=== PATIENT | female | born 1935 | race Caucasian/White ===

== ENCOUNTER → 2017-04-29 | Outpatient (CLI) | payer MEDICARE ==
[2017-04-29 08:58] LABS: AUTOMATED NEUTROPHIL # 3.9 TH/MM3 (1.8-7.7); BASOPHIL % 0.7 % (0.0-2.0); EOSINOPHIL # 0.1 TH/MM3 (0-0.4); EOSINOPHIL % 1.2 % (0.0-4.0); HEMATOCRIT 36.2 % (35.0-46.0); HEMO FLAGS DIFF FINAL; LYMPHOCYTE # 1.8 TH/MM3 (1.0-4.8); MEAN CELL VOLUME 94.6 FL (80.0-100.0); MEAN CORPUSCULAR HEMOGLOBIN 30.9 PG (27.0-34.0); MEAN CORPUSCULAR HGB CONC 32.7 % (32.0-36.0); MONO % 8.7 % (0.0-8.0); NEUT % 61.4 % (16.0-70.0); PLATELET COUNT 194 TH/MM3 (150-450); RED BLOOD COUNT 3.82 MIL/MM3 (4.00-5.30); RED CELL DISTRIBUTION WIDTH 15.6 % (11.6-17.2); WHITE BLOOD COUNT 6.3 TH/MM3 (4.0-11.0)
[2017-04-29 09:19] LABS: ANION GAP 6 MEQ/L (5-15); AST (GOT) 28 U/L (15-37); BICARBONATE 25.2 MEQ/L (21.0-32.0); BLOOD UREA NITROGEN 15 MG/DL (7-18); CHLORIDE 106 MEQ/L (98-107); GLOMERULAR FILTRATION RATE 88 ML/MIN (>89); GLUCOSE,FASTING 86 MG/DL (74-99); POTASSIUM 4.2 MEQ/L (3.5-5.1); SODIUM (NA) 137 MEQ/L (136-145)
[2017-04-29 09:31] LABS: ALKALINE PHOSPHATASE 81 U/L (45-117); ALT (GPT) 25 U/L (10-53); TOTAL BILIRUBIN ADULT 0.7 MG/DL (0.2-1.0)
== END ==
LOC: OLAB 07:41
DX: E03.9 Hypothyroidism, unspecified (principal)
CPT/HCPCS: 36415; 80053; 84443; 85025

== ENCOUNTER → 2017-05-12 | Outpatient (CLI) | payer MEDICARE | LOC: OLAB 09:07 | PROVIDERS: ATTEND Internal Medicine Pulmonary Disease | DX: J47.9 Bronchiectasis, uncomplicated (principal); B96.5 Pseudomonas (aeruginosa) (mallei) (pseudomallei) as the cause of diseases classified elsewhere | CPT/HCPCS: 87070; 87077; 87186; 87205 ==

== ENCOUNTER → 2017-05-13 | Outpatient (CLI) | payer MEDICARE ==
[2017-05-13 13:16] LABS: BACTERIA, URINE RARE /hpf; BLOOD, URINE TRACE (NEG); GLUCOSE,URINE NEG (NEG); KETONE, URINE NEG (NEG); NITRITE,URINE NEG (NEG); PH, URINE 5.5 (5.0-8.5); SQUAMOUS EPITHELIAL CELL URINE 1 /hpf (0-5); URINE COLOR YELLOW (YELLW/STRAW)
[2017-05-13 13:18] LABS: COMMENT (UR) CULT NOT INDICATED; CULTURE IF INDICATED CULT NOT INDICATED
== END ==
LOC: OLAB 10:01
DX: R35.0 Frequency of micturition (principal)
CPT/HCPCS: 81001

== ENCOUNTER → 2017-06-30 | Outpatient (CLI) | payer MEDICARE | LOC: OLAB 07:44 | PROVIDERS: ATTEND Internal Medicine Pulmonary Disease | DX: J47.9 Bronchiectasis, uncomplicated (principal); B96.5 Pseudomonas (aeruginosa) (mallei) (pseudomallei) as the cause of diseases classified elsewhere | CPT/HCPCS: 87070; 87077; 87186; 87205 ==

== ENCOUNTER → 2017-09-03 | Outpatient (CLI) | payer MEDICARE | LOC: OLAB 09:56 | PROVIDERS: ATTEND Internal Medicine Gastroenterology | DX: K59.00 Constipation, unspecified (principal); R19.7 Diarrhea, unspecified | CPT/HCPCS: 82272 ==

== ENCOUNTER 2018-01-28 08:47 | Inpatient (IN) | payer MEDICARE ==
[~2018-01-28] VITALS: Ht 152.4 cm; Wt 41.2 kg
[2018-01-28] VITALS (12 sets, daily range): BP systolic 114–164; BP diastolic 71–88; PULSE 62–88; RESP 16–24; TEMP 97.4–98.3; O2SAT 96–98
[2018-01-28] MEDS ORDERED: IOHEXOL 350 MG/ML 10 ML VIAL (for RAD DIAG) IVCONTRAST ONE (08:48)
[2018-01-28] MEDS ORDERED: LEVO88TA2 PO (09:31)
[2018-01-28] MEDS ORDERED: LANS30CA PO (09:31)
[2018-01-28] MEDS ORDERED: LEVA0.637 INH (09:31)
[2018-01-28] MEDS ORDERED: MULTTAB67 PO (09:31)
[2018-01-28] MEDS ORDERED: COLE1TAB2 PO (09:31)
[2018-01-28] MEDS ORDERED: CYAN1000P IM (09:31)
[2018-01-28] MEDS ORDERED: BUSP10TA PO (09:31)
[2018-01-28] MEDS ORDERED: HUMIBIDDM PO (09:31)
[2018-01-28] MEDS ORDERED: WARF4TAB51 PO (09:31)
[2018-01-28] MEDS ORDERED: SACC1CAP3 PO (09:31)
[2018-01-28] MEDS ORDERED: PROG200C PO (09:31)
[2018-01-28] MEDS ORDERED: ASPI-516 CHEW (09:31)
[2018-01-28] MEDS ORDERED: CLON1TAB PO (09:31)
[2018-01-28] MEDS ORDERED: [UNRECOGNIZED DRUG - CODE] T-DERMAL (09:31)
[2018-01-28] MEDS ORDERED: SODI7NEB3 NEB (09:31)
[2018-01-28] MEDS ORDERED: TRAM50TA PO (09:31)
[2018-01-28] MEDS ORDERED: SODIUM CHLORIDE 0.9% FLUSH 10 ML FLUSH IVF PRN (10:15)
--- NOTE | 2018-01-28 10:28 | RADRPT ---
EXAM DATE: 01/28/2018 10:23 AM EDT AGE/SEX: 82 years / Female INDICATIONS: Short of breath CLINICAL DATA: This is the patient's initial encounter. Patient reports that signs and symptoms have been present for 1 day and indicates a pain score of 0/10. MEDICAL/SURGICAL HISTORY: Chronic obstructive pulmonary disease. Cholecystectomy. Pacemaker. H eart valve replacement COMPARISON: No prior exams available for comparison. FINDINGS: Single view chest demonstrates cardiomegaly. The patient is post TAVR. There are bilateral effusions and interstitial edema most consistent with congestive failure. There is a transvenous pacer in good position. The visualized bony structures are grossly intact. CONCLUSION: Probable CHF. Postoperative changes as above. Electronically signed by: French Ronquillo MD 01/28/2018 10:27 AM EDT
[2018-01-28 10:32] LABS: AUTOMATED NEUTROPHIL # 3.5 TH/MM3 (1.8-7.7); BASOPHIL % 0.7 % (0.0-2.0); EOSINOPHIL % 0.2 % (0.0-4.0); HEMOGLOBIN 12.4 GM/DL (11.6-15.3); LYMPH % 17.9 % (9.0-44.0); LYMPHOCYTE # 0.9 TH/MM3 (1.0-4.8); MEAN CELL VOLUME 95.6 FL (80.0-100.0); MEAN CORPUSCULAR HEMOGLOBIN 31.3 PG (27.0-34.0); MEAN CORPUSCULAR HGB CONC 32.7 % (32.0-36.0); MEAN PLATELET VOLUME 8.3 FL (7.0-11.0); MONO % 11.5 % (0.0-8.0); MONOCYTE # 0.6 TH/MM3 (0-0.9); NEUT % 69.7 % (16.0-70.0); PLATELET COUNT 158 TH/MM3 (150-450); RED BLOOD COUNT 3.98 MIL/MM3 (4.00-5.30); RED CELL DISTRIBUTION WIDTH 16.2 % (11.6-17.2); WHITE BLOOD COUNT 5.1 TH/MM3 (4.0-11.0)
[2018-01-28 10:41] LABS: INTERNATIONAL NORMALIZED RATIO 2.6 RATIO; PROTHROMBIN TIME - PATIENT 26.1 SEC (9.8-11.6)
[2018-01-28 10:59] LABS: ALBUMIN 3.5 GM/DL (3.4-5.0); AST (GOT) 32 U/L (15-37); BICARBONATE 22.1 MEQ/L (21.0-32.0); BLOOD UREA NITROGEN 14 MG/DL (7-18); CALCIUM 8.6 MG/DL (8.5-10.1); CHLORIDE 110 MEQ/L (98-107); CREATININE 0.81 MG/DL (0.50-1.00); GLOMERULAR FILTRATION RATE 68 ML/MIN (>89); GLUCOSE,RANDOM 76 MG/DL (74-106); SODIUM (NA) 140 MEQ/L (136-145)
[2018-01-28 11:00] LABS: ALT (GPT) 29 U/L (10-53)
[2018-01-28 11:03] LABS: ALKALINE PHOSPHATASE 69 U/L (45-117); TOTAL BILIRUBIN ADULT 0.7 MG/DL (0.2-1.0); TOTAL PROTEIN 7.5 GM/DL (6.4-8.2)
[2018-01-28 11:06] LABS: TROPONIN I 0.92 NG/ML (0.02-0.05)
[2018-01-28] MEDS ORDERED: ASPIRIN 81 MG CHEW TAB CHEW ONE (11:30)
[2018-01-28] MEDS ORDERED: FUROSEMIDE 20 MG/2 ML VIAL IV PUSH ONE (11:30)
--- NOTE | 2018-01-28 11:57 | RADRPT ---
EXAM DATE: 01/28/2018 11:47 AM EDT AGE/SEX: 82 years / Female INDICATIONS: Short of breath. CLINICAL DATA: This is the patient's initial encounter. Patient reports that signs and symptoms have been present for 1 day and indicates a pain score of 0/10. MEDICAL/SURGICAL HISTORY: Cardiovascular disease. Pacemaker. Cholecystectomy. Valve replacement. RADIATION DOSE: 5.54 CTDI (mGy) COMPARISON: [facility], CT CHEST W/O CONTRAST, 01/05/2018. . TECHNIQUE: Volumetric scanning was performed using a multi-row detector CT scanner during bolus infu alvino of 73 ml Omnipaque 350 (iohexol) nonionic water-soluble contrast as a single exam dose. The joshua a was post processed with a variety of visualization algorithms including full volume maximum intensi ty projection and sliding thin slab reformation. Using automated exposure control and adjustment of t he mA and/or kV according to patient size, radiation dose was kept as low as reasonably achievable to obtain optimal diagnostic quality images. DICOM format image data is available electronically for r eview and comparison. FINDINGS: Pulmonary Arteries: There is some heterogeneity of the contrast within the pulmonary system however there does appear to be linear filling defects in the main pulmonary especially on the right. There i s more distal pulmonary emboli seen in the pulmonary supplying the right lower lobe. Lung: There are focal areas of increased density in the superior aspect of the lower lobes bilateral ly. There is a small focal area of density seen in the lateral right upper lobe which appear smaller on the current exam. There is suspected consolidation or atelectasis at the right middle lobe and to lesser degree left lingula. There is some subpleural atelectasis at the lower lobes bilaterally. Effusion: There are mild bilateral pleural effusions being worse on the left. Mediastinum: The patient has a has a TAVR at the aortic valve. There is a pacing device present. Sig nificant adenopathy is not seen. There is prominent reflux of contrast into the hepatic veins and IVC which can be seen with increased pressure in the right heart. Other: The axilla is unremarkable. CONCLUSION: 1. Pulmonary emboli. 2. Patchy areas of density in the superior segments of the lower lobes bilaterally, in the lateral r ight upper lobe, right middle lobe, left lingula, and bases. These can be followed. 3. Bilateral mild pleural effusions being worse on the left. Electronically signed by: Lance Orta MD 01/28/2018 11:55 AM EDT
[2018-01-28] MEDS ORDERED: HEPARIN-D5W 25,000 U/250 ML 250 ML IV PRN (12:45)
--- NOTE | 2018-01-28 13:23 | PD ---
HPI Chief Complaint: Respiratory Symptoms Time Seen by Provider: 09:02 Travel History International Travel<30 days: No Contact w/Intl Traveler<30days: No Traveled to known affect area: No History of Present Illness HPI Patient is an 82 year old female who comes in complaining of SOB. She says she has had increasing shortness of breath for the past 5 days. She says the SOB comes on when she exerts herself. She says she cannot walk to the mailbox without getting short of breath. She denies any chest pain. She went to see Dr. Iqbal last week and had an echo performed. She denies any leg swelling or pain. She says this feels the same as when she had her aortic valve replaced. Severity is mild to moderate. PFSH Past Medical History Hx Anticoagulant Therapy: Yes Anemia: Yes Atrial Fibrillation: Yes Anxiety: Yes Cardiovascular Problems: Yes (mitral regurgitation, non rheumatic tricuspid valva insufficiency ) Chest Pain: Yes Coronary Artery Disease: Yes Respiratory: Yes (bronchiectasis) Thyroid Disease: Yes (hypo ) ?: Not Menopausal: Yes Past Surgical History Abdominal Surgery: Yes (abd hernia repair ) Cardiac Surgery: Yes (aritficial valve, pacemaker ) Cholecystectomy: Yes Tonsillectomy: Yes Social History Alcohol Use: No Tobacco Use: No Substance Use: No Allergies-Medications (Allergen,Severity, Reaction): Coded Allergies: Penicillins (Verified Allergy, Severe, 01/28/18) Sulfa (Sulfonamide Antibiotics) (Verified Allergy, Severe, 01/28/18) azithromycin (Verified Allergy, Severe, 01/28/18) levofloxacin (Verified Allergy, Severe, 01/28/18) Uncoded Allergies: minicin (Allergy, Severe, 01/28/18) Reported Meds & Prescriptions Reported Meds & Active Scripts Active Reported Probiotic (Saccharomyces Boulardii) 250 Mg Cap 250 Mg PO DAILY Warfarin 2 Mg Tab 4 Mg PO DAILY Tramadol (Tramadol HCl) 50 Mg Tab 50 Mg PO DAILY PRN Sodium Chloride Neb (Sodium Chloride) 7 % Neb 1 Ml NEB BID PRN Dilute in bronchodilator solution in nebulizer before administration. Estradiol Patch 168 HR (Estradiol) 0.06 Mg/24 Hr Patch 1 Patch T-DERMAL 2XWEEK Remove old patch and discard when new patch being placed. Clonazepam 1 Mg Tab 1 Mg PO TID Cyanocobalamin Inj (Cyanocobalamin) 1,000 Mcg/Ml Inj 1,000 Mcg IM Q30D Colestipol (Colestipol HCl) 1 Gram Tab 0.5 Gm PO DAILY Buspirone (Buspirone HCl) 10 Mg Tab 10 Mg PO BID Aspirin 81 Mg Chew 81 Mg CHEW DAILY Progesterone Micronized 200 Mg Cap 200 Mg PO HS Multiple Vitamin 1 Tab 1 Tab PO DAILY Mucinex DM (Dextromethorphan-Guaifenesin) 30-600 Mg Tab 1 Tab PO DAILY Levothyroxine (Levothyroxine Sodium) 88 Mcg Tab 88 Mcg PO DAILY Levalbuterol Neb (Levalbuterol HCl) 0.63 Mg/3 Ml Neb 0.63 Mg INH Q8HR Lansoprazole 30 Mg Capdr 30 Mg PO DAILY Review of Systems Except as stated in HPI: all other systems reviewed are Neg General / Constitutional: No: Fever, Chills HENT: No: Headaches, Lightheadedness Cardiovascular: No: Chest Pain or Discomfort Respiratory: Positive: Shortness of Breath Gastrointestinal: No: Nausea, Vomiting Musculoskeletal: No: Myalgias, Edema Skin: No Rash, No Change in Pigmentation Neurologic: No: Weakness, Dizziness, Syncope Physical Exam Narrative GENERAL: Awake and alert, in no acute distress. SKIN: Focused skin assessment warm/dry. HEAD: Atraumatic. Normocephalic. EYES: Pupils equal and round. No scleral icterus. No injection or drainage. ENT: No nasal bleeding or discharge. Mucous membranes pink and moist. NECK: Trachea midline. No JVD. CARDIOVASCULAR: Regular rate and rhythm. No murmur appreciated. RESPIRATORY: No accessory muscle use. Crackles at the lung bases. Breath sounds equal bilaterally. GASTROINTESTINAL: Abdomen soft, non-tender, nondistended. MUSCULOSKELETAL: No obvious deformities. No clubbing. No cyanosis. No edema. NEUROLOGICAL: Awake and alert. No obvious cranial nerve deficits. Motor grossly within normal limits. Normal speech. PSYCHIATRIC: Appropriate mood and affect; insight and judgment normal. Data Data Last Documented VS Vital Signs Date Time Temp Pulse Resp B/P (MAP) Pulse Ox O2 Delivery O2 Flow Rate FiO2 01/28/18 10:25 98 01/28/18 09:10 68 21 Room Air 01/28/18 08:52 97.4 125/71 (89) Orders Orders Complete Blood Count With Diff (01/28/18 10:09) Comprehensive Metabolic Panel (01/28/18 10:09) B-Type Natriuretic Peptide (01/28/18 10:09) Act Partial Throm Time (Ptt) (01/28/18 10:09) Prothrombin Time / Inr (Pt) (01/28/18 10:09) Ckmb (Isoenzyme) Profile (01/28/18 10:09) Troponin I (01/28/18 10:09) Iv Access Insert/Monitor (01/28/18 10:09) Ecg Monitoring (01/28/18 10:09) Oximetry (01/28/18 10:09) Oxygen Administration (01/28/18 10:09) Chest, Single Ap (01/28/18 10:09) Ct Pulmonary Angiogram (01/28/18 10:09) Sodium Chloride 0.9% Flush (Ns Flush) (01/28/18 10:15) CKMB (01/28/18 10:26) CKMB% (01/28/18 10:26) Electrocardiogram (01/28/18 ) Aspirin Chew (Aspirin Chew) (01/28/18 11:30) Furosemide Inj (Lasix Inj) (01/28/18 11:30) Iohexol 350 Inj (Omnipaque 350 Inj) (01/28/18 08:48) Heparin Inj (Heparin Inj) (01/28/18 18:45) Heparin Inj (Heparin Inj) (01/28/18 18:45) Heparin-D5w 25,000 U/250 Ml (Heparin-D5w (01/28/18 12:45) Cbc No Diff, Includes Plts (01/31/18 06:00) Act Partial Throm Time (Ptt) (01/28/18 19:40) Occult Blood (Hemoccult) Stool (01/28/18 12:40) Labs Laboratory Tests Test 01/28/18 10:26 White Blood Count 5.1 TH/MM3 Red Blood Count 3.98 MIL/MM3 Hemoglobin 12.4 GM/DL Hematocrit 38.0 % Mean Corpuscular Volume 95.6 FL Mean Corpuscular Hemoglobin 31.3 PG Mean Corpuscular Hemoglobin Concent 32.7 % Red Cell Distribution Width 16.2 % Platelet Count 158 TH/MM3 Mean Platelet Volume 8.3 FL Neutrophils (%) (Auto) 69.7 % Lymphocytes (%) (Auto) 17.9 % Monocytes (%) (Auto) 11.5 % Eosinophils (%) (Auto) 0.2 % Basophils (%) (Auto) 0.7 % Neutrophils # (Auto) 3.5 TH/MM3 Lymphocytes # (Auto) 0.9 TH/MM3 Monocytes # (Auto) 0.6 TH/MM3 Eosinophils # (Auto) 0.0 TH/MM3 Basophils # (Auto) 0.0 TH/MM3 CBC Comment DIFF FINAL Differential Comment Prothrombin Time 26.1 SEC Prothromb Time International Ratio 2.6 RATIO Activated Partial Thromboplast Time 40.1 SEC Blood Urea Nitrogen 14 MG/DL Creatinine 0.81 MG/DL Random Glucose 76 MG/DL Total Protein 7.5 GM/DL Albumin 3.5 GM/DL Calcium Level 8.6 MG/DL Alkaline Phosphatase 69 U/L Aspartate Amino Transf (AST/SGOT) 32 U/L Alanine Aminotransferase (ALT/SGPT) 29 U/L Total Bilirubin 0.7 MG/DL Sodium Level 140 MEQ/L Potassium Level 4.5 MEQ/L Chloride Level 110 MEQ/L Carbon Dioxide Level 22.1 MEQ/L Anion Gap 8 MEQ/L Estimat Glomerular Filtration Rate 68 ML/MIN Total Creatine Kinase 161 U/L Creatine Kinase MB 8.4 NG/ML Troponin I 0.92 NG/ML B-Type Natriuretic Peptide 1188 PG/ML MDM Medical Decision Making Medical Screen Exam Complete: Yes Emergency Medical Condition: Yes Medical Record Reviewed: Yes Interpretation(s) ECG shows paced rhythm Differential Diagnosis ACS vs CHF vs pulmonary fibrosis vs pneumonia Narrative Course Patient is an 82-year-old female who comes of breath. Exam shows crackles at both lung bases. IV established, labs sent. Patient connected to front desk monitor. Labs show an elevated troponin of 0.92. Chest x-ray shows evidence of CHF. CT of the chest performed shows no evidence of PE. Last 24 hours Impressions Chest X-Ray 01/28/18 1009 Signed Impressions: CONCLUSION: Probable CHF. Postoperative changes as above. CT Angiography 01/28/18 100 Signed Impressions: CONCLUSION: 1. Pulmonary emboli. 2. Patchy areas of density in the superior segments of the lower lobes bilater ally, in the lateral right upper lobe, right middle lobe, left lingula, and bas es. These can be followed. 3. Bilateral mild pleural effusions being worse on the left. Patient given a dose of Lasix. Given aspirin. I spoke with Dr. Iqbal, the patient's podiatrist. He advises switching to heparin from warfarin. Consult cardiology as well as pulmonology. Admit to medicine. Diagnosis Primary Impression: NSTEMI (non-ST elevated myocardial infarction) Additional Impressions: CHF (congestive heart failure) Qualified Codes: I50.9 - Heart failure, unspecified Pulmonary fibrosis Admitting Information Admitting Physician Requests: Admit Nga Scanlon MD Jan 28, 2018 13:23
[2018-01-28] MEDS ORDERED: clonazePAM 1 MG TAB PO ONE (13:45)
[2018-01-28] MEDS ORDERED: SODIUM CHLORIDE NEB PRN (14:30)
--- NOTE | 2018-01-28 14:36 | HHI.HP ---
[facility] Primary Care Physician No Primary Care Physician Admission Diagnosis PE, pulmomary edema Diagnoses: Chief Complaint: Shortness of breath Travel History International Travel<30 Days: No Contact w/Intl Traveler <30 Da: No Traveled to Known Affected Are: No History of Present Illness The patient is an 82-year-old female with a past medical history significant for bronchiectasis who is presenting to the hospital with worsening of her shortness of breath. The patient says that she has been treated for bronchiectasis for the past 17 years. 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 She says normally when she gets shortness of breath she will get nebulizer treatments and IV cefepime from the infectious disease doctor. She says she usually gets a CAT scan once a year for monitoring purposes. She says the last time she got antibiotics through the IV was Thanks[place] time. Approximately 3 weeks ago she completed a course of Cipro for 10 days. The patient says as of last week she could not ambulate to the mailbox without getting short of breath. She denies any lower extremity swelling. She says she can lie flat on her back without shortness of breath. She says as long as she stays still or sits down she does not have shortness of breath. She denies any associated chest pain. She has been endorsing some leg cramps in the middle of the night. Review of Systems Except as stated in HPI: all other systems reviewed are Neg Past Family Social History Past Medical History Bronchiectasis Right lung collapse Empyema COPD Mitral regurgitation A fib Hypothyroidism Past Surgical History TAVR S/p pacemaker placement Bilateral hernia repair Allergies: Coded Allergies: Penicillins (Verified Allergy, Severe, 01/28/18) Sulfa (Sulfonamide Antibiotics) (Verified Allergy, Severe, 01/28/18) azithromycin (Verified Allergy, Severe, 01/28/18) levofloxacin (Verified Allergy, Severe, 01/28/18) Uncoded Allergies: minicin (Allergy, Severe, 01/28/18) Family History Lung cancer Tuberculosis Social History The pt does not drink or smoke. Physical Exam Vital Signs Vital Signs Date Time Temp Pulse Resp B/P (MAP) Pulse Ox O2 Delivery O2 Flow Rate FiO2 01/28/18 13:50 88 24 164/88 (113) 96 Room Air 01/28/18 10:25 98 01/28/18 09:10 68 21 97 Room Air 01/28/18 08:52 97.4 70 22 125/71 (89) 97 Physical Exam GENERAL: This is a well-nourished, well-developed patient, in no apparent distress. SKIN: No rashes, ecchymoses or lesions. Cool and dry. HEAD: Atraumatic. Normocephalic. No temporal or scalp tenderness. EYES: Pupils equal round and reactive. Extraocular motions intact. No scleral icterus. No injection or drainage. ENT: Nose without bleeding, purulent drainage or septal hematoma. Throat without erythema, tonsillar hypertrophy or exudate. Uvula midline. Airway patent. NECK: Trachea midline. No JVD or lymphadenopathy. Supple, nontender, no meningeal signs. CARDIOVASCULAR: Irregularly irregular, murmur present. RESPIRATORY: Bilateral crackles appreciated. GASTROINTESTINAL: Abdomen soft, non-tender, nondistended. No hepato-splenomegaly , or palpable masses. No guarding. MUSCULOSKELETAL: Extremities without clubbing, cyanosis, or edema. No joint tenderness, effusion, or edema noted. NEUROLOGICAL: Awake and alert. Cranial nerves II through XII intact. Motor and sensory grossly within normal limits. Five out of 5 muscle strength in all muscle groups. Normal speech. PSYCH: Anxious. Laboratory Laboratory Tests Test 01/28/18 10:26 White Blood Count 5.1 Red Blood Count 3.98 Hemoglobin 12.4 Hematocrit 38.0 Mean Corpuscular Volume 95.6 Mean Corpuscular Hemoglobin 31.3 Mean Corpuscular Hemoglobin Concent 32.7 Red Cell Distribution Width 16.2 Platelet Count 158 Mean Platelet Volume 8.3 Neutrophils (%) (Auto) 69.7 Lymphocytes (%) (Auto) 17.9 Monocytes (%) (Auto) 11.5 Eosinophils (%) (Auto) 0.2 Basophils (%) (Auto) 0.7 Neutrophils # (Auto) 3.5 Lymphocytes # (Auto) 0.9 Monocytes # (Auto) 0.6 Eosinophils # (Auto) 0.0 Basophils # (Auto) 0.0 CBC Comment DIFF FINAL Differential Comment Prothrombin Time 26.1 Prothromb Time International Ratio 2.6 Activated Partial Thromboplast Time 40.1 Blood Urea Nitrogen 14 Creatinine 0.81 Random Glucose 76 Total Protein 7.5 Albumin 3.5 Calcium Level 8.6 Alkaline Phosphatase 69 Aspartate Amino Transf (AST/SGOT) 32 Alanine Aminotransferase (ALT/SGPT) 29 Total Bilirubin 0.7 Sodium Level 140 Potassium Level 4.5 Chloride Level 110 Carbon Dioxide Level 22.1 Anion Gap 8 Estimat Glomerular Filtration Rate 68 Total Creatine Kinase 161 Creatine Kinase MB 8.4 Troponin I 0.92 B-Type Natriuretic Peptide 1188 Result Diagram: 01/28/18 1026 01/28/18 1026 Imaging Last Impressions Chest X-Ray 01/28/18 1009 Signed Impressions: CONCLUSION: Probable CHF. Postoperative changes as above. CT Angiography 01/28/18 1009 Signed Impressions: CONCLUSION: 1. Pulmonary emboli. 2. Patchy areas of density in the superior segments of the lower lobes bilater ally, in the lateral right upper lobe, right middle lobe, left lingula, and bas es. These can be followed. 3. Bilateral mild pleural effusions being worse on the left. Caprini VTE Risk Assessment Caprini VTE Risk Assessment: Mod/High Risk (score >= 2) Caprini Risk Assessment Model Point Value = 1 Point Value = 2 Point Value = 3 Point Value = 5 Age 41-60 Minor surgery BMI > 25 kg/m2 Swollen legs Varicose veins or History of unexplained or recurrent spontaneous Oral contraceptives or hormone replacement Sepsis (< 1 month) Serious lung disease, including pneumonia (< 1 month) Abnormal pulmonary function Acute myocardial infarction Congestive heart failure (< 1 month) History of inflammatory bowel disease Medical patient at bed rest Age 61-74 Arthroscopic surgery Major open surgery (> 45 min) Laparoscopic surgery (> 45 min) Malignancy Confined to bed (> 72 hours) Immobilizing plaster cast Central venous access Age >= 75 History of VTE Family history of VTE Factor V Leiden Prothrombin [id number] Lupus anticoagulant Anticardiolipin antibodies Elevated serum homocysteine Heparin-induced thrombocytopenia Other congenital or acquired thrombophilia Stroke (< 1 month) Elective arthroplasty Hip, pelvis, or leg fracture Acute spinal cord injury (< 1 month) Prophylaxis Regimen Total Risk Factor Score Risk Level Prophylaxis Regimen 0-1 Low Early ambulation 2 Moderate Order ONE of the following: *Sequential Compression Device (SCD) *Heparin 5000 units SQ BID 3-4 Higher Order ONE of the following medications: *Heparin 5000 units SQ TID *Enoxaparin/Lovenox 40 mg SQ daily (WT < 150 kg, CrCl > 30 mL/min) *Enoxaparin/Lovenox 30 mg SQ daily (WT < 150 kg, CrCl > 10-29 mL/min) *Enoxaparin/Lovenox 30 mg SQ BID (WT < 150 kg, CrCl > 30 mL/min) AND/OR *Sequential Compression Device (SCD) 5 or more Highest Order ONE of the following medications: *Heparin 5000 units SQ TID (Preferred with Epidurals) *Enoxaparin/Lovenox 40 mg SQ daily (WT < 150 kg, CrCl > 30 mL/min) *Enoxaparin/Lovenox 30 mg SQ daily (WT < 150 kg, CrCl > 10-29 mL/min) *Enoxaparin/Lovenox 30 mg SQ BID (WT < 150 kg, CrCl > 30 mL/min) AND *Sequential Compression Device (SCD) Assessment and Plan Assessment and Plan Acute on chronic respiratory failure/ PE/ Bronchiectasis The patient presents with worsening shortness of breath. CT showed: Pulmonary emboli; Patchy areas of density in the superior segments of the lower lobes bilaterally, in the lateral right upper lobe, right middle lobe, left lingula, and bases; Bilateral mild pleural effusions being worse on the left. - continue standing and as needed nebs. - oxygen as needed. - sputum culture. - incentive spirometry. - IV cefepime. - pulmonology consult requested. - Coumadin switched to heparin gtt. Elevated troponin/ Elevated BNP/ A fib Troponin was 0.92 on admission. No chest pain. Cardiology consult appreciated. - trend trops. - monitor on telemetry. - heparin gtt. - continue ASA. Hypothyroidism On levothyroxine. - check a TSH. - continue levothyroxine. Anxiety Chronic. - continue Klonopin as needed. PPx: Heparin gtt Code Status Full Discussed Condition With Pt, pt's family, Dr. Iqbal, Dr. Scanlon Physician Certification 2 Midnight Certification Type: Admission for Inpatient Services Order for Inpatient Services The services are ordered in accordance with Medicare regulations or non- Medicare payer requirements, as applicable. In the case of services not specified as inpatient-only, they are appropriately provided as inpatient services in accordance with the 2-midnight benchmark. Estimated LOS (days): 2 days is the estimated time the patient will need to remain in the hospital, assuming treatment plan goals are met and no additional complications. Post-Hospital Plan: Not yet determined Luis Lainez DO Jan 28, 2018 14:36
[2018-01-28] MEDS ORDERED: RESP: ALBUTEROL 2.5 MG/IPRATROPIUM 0.5 MG NEB (PRN) NEB (15:00)
[2018-01-28] MEDS ORDERED: RESP: SODIUM CHLORIDE 0.9% 5 ML NEB NEB PRN (15:45)
[2018-01-28] MEDS: CEFEPIME INJ 2,000 MG in SODIUM CHLORIDE 0.9% INJ 100 ML IV SCH (16:36)
--- NOTE | 2018-01-28 16:37 | MB ---
cc: Luis Antonio Salmon MD DATE: 01/28/2018 REASON FOR CONSULTATION: Pulmonary embolism. HISTORY OF PRESENT ILLNESS: Mrs. Renteria is an 82-year-old female with a known history of bronchiectasis of severe degree with multiple exacerbations requiring antibiotic therapy in the past. The patient presents with increasing shortness of breath. She could not walk a few steps without getting short of breath. CT angiogram was done with evidence of pulmonary emboli, for which the patient has been placed on heparin therapy. Worthy Of note is that the patient is on long-term anticoagulant therapy for atrial fibrillation. She tells me she has only been off of Coumadin when her INR was too high and it had to be adjusted downwards. PAST MEDICAL HISTORY: Bronchiectasis, history of a right lung empyema, atrial fibrillation, mitral regurgitation, hypothyroidism. PAST SURGICAL HISTORY: Had a transaortic valve replacement, has a pacemaker in place and previous hernia repair. ALLERGIES: INCLUDE PENICILLIN, SULFA, AZITHROMYCIN, LEVOFLOXACIN. The patient, however, had taken ciprofloxacin before without allergic response. QUESTIONABLY ALLERGIC TO MINOCIN as well. FAMILY HISTORY: Positive for malignancy, tuberculosis. SOCIAL HISTORY: The patient does not smoke and does not drink. CURRENT MEDICATIONS: Include: 1. Pantoprazole. 2. Synthroid. 3. Klonopin. 4. BuSpar. 5. DuoNeb. 6. Heparin. 7. Cefepime. REVIEW OF SYSTEMS: A 12-point review of systems as per HPI and Past History, otherwise negative. PHYSICAL EXAMINATION: GENERAL: Patient alert. VITAL SIGNS: Temperature 97.5, pulse 70, respirations 20, blood pressure 160/84. HEENT: Unremarkable. Eyes without icterus. NECK: Without adenopathy, thyroid enlargement. CHEST: Few scattered rhonchi at bases. CARDIAC: Irregularity noted. ABDOMEN: Lax, bowel sounds audible. EXTREMITIES: No clubbing, cyanosis or edema. LABORATORY DATA: White count 5.1, hemoglobin 12, hematocrit 38, platelets 158,000. Sodium 140, potassium 4.5, BUN 14, creatinine 0.8. INR 2.6. IMAGING STUDIES: CT angiogram with evidence of pulmonary emboli, patchy infiltrates superior segment of lower lobes of both lungs. The right upper and middle lobes show patchy opacification, likely chronic, as well as in the lingula on the left. Small pleural effusions are noted as well. IMPRESSION: 1. Respiratory failure. 2. Pulmonary embolism. 3. Question hypercoagulable state. 4. Bronchiectasis. 5. Atrial fibrillation. 6. Anxiety. PLAN: The patient is placed on heparin therapy at present. It is concerning that the patient has been on anticoagulant therapy, namely Coumadin, with development of pulmonary emboli. Hypercoagulable state is suspect. Oncologic Hematology evaluation would be appropriate for hypercoagulable state. Meanwhile, continue heparin therapy. The infiltrates in both lungs are likely infectious in nature and the patient indeed was started on antibiotic therapy and appropriately so. I have discussed the possibility of bronchoscopic examination to obtain appropriate culture; however, the patient is completely against any endoscopic evaluation at this time. We will follow her care along with you and, depending on progress, proceed further. I do thank you for asking me to partake in Mrs. Renteria's care. Luis Antonio Salmon MD WWW/YOLANDA , 04:10 PM , 04:36 PM
[2018-01-28] MEDS ORDERED: LORazepam 2 MG/ML VIAL IV PUSH ONE (17:30)
--- NOTE | 2018-01-28 17:41 | EKG ---
Date Performed: 01/28/2018 Time Performed: 11:09:43 PTAGE: 82 years EKG: ELECTRONIC ATRIAL PACEMAKER ELECTRONIC VENTRICULAR PACEMAKER ABNORMAL RHYTHM ECG NO PREVIOUS TRACING DOCTOR: Joaquina Rocha Interpretating Date/Time 01/28/2018 17:39:47
--- NOTE | 2018-01-28 18:07 | MB ---
cc: Memo Iqbal MD, [place] MD DATE: 01/28/2018 HISTORY OF PRESENT ILLNESS: Ms. Renteria is an 82-year-old white female with a history of bronchiectases, COPD, atrial fibrillation, and mitral and tricuspid regurgitation. The patient is seen with progressive shortness of breath. She has not had any chest pain. She has had some shortness of breath with minimal exertion. She is on anticoagulation with warfarin. She has not had any lower extremity edema. Her shortness of breath is actually improved when she lies down. PAST MEDICAL HISTORY: Positive for sick sinus syndrome, hypothyroidism, anemia, anxiety, bronchiectasis, COPD, gastroesophageal reflux disease, atrial fibrillation, status post TAVR, history of [employer] dual-chamber biventricular pacemaker placement, history of tonsillectomy, cholecystectomy, right hernia surgery, left hernia surgery, D and C, cardiac ablation, cardiac catheterization in 05/2016, which showed nonobstructive pulmonary artery disease with 40-50% LAD stenosis and 70% stenosis of a small first diagonal artery. Left ventricular function was preserved from recent echocardiogram with an ejection fraction of 55%. There was evidence of moderate to severe mitral regurgitation, moderate tricuspid regurgitation and severe pulmonary hypertension. MEDICATIONS: 1. Aspirin. 2. Cyanocobalamin. 3. Estradiol. 4. Lansoprazole 5. Levalbuterol 6. Levothyroxine. 7. Sodium chloride 8. Tramadol 9. Probiotic 10. Clonazepam. 11. Buspirone 12. Progesterone. 13. Warfarin. 14. Metoprolol 15. Antacid 16. Fluticasone. 17. Colestipol. 18. Mucinex. 19. Lisinopril. ALLERGIES: PENICILLIN, SULFA, AZITHROMYCIN, LEVOFLOXACIN SOCIAL HISTORY: The patient does not smoke. She does not alcohol. She is accompanied by her son. FAMILY HISTORY: Positive for heart disease in the siblings. REVIEW OF SYSTEMS: Otherwise negative. PHYSICAL EXAMINATION: VITAL SIGNS: Blood pressure 125/78, pulse 70 and regular. HEENT: Negative, 2+ carotid upstrokes. LUNGS: With few rhonchi. HEART: Irregular. No murmur, gallop or rub. ABDOMEN: Soft without bruits. EXTREMITIES: Without edema. 2+ distal pulses. NEUROLOGIC: Grossly nonfocal. CARDIOLOGY STUDIES: EKG was reviewed and showed sinus rhythm, PACs and biventricular pacing. LABORATORY DATA: Hemoglobin 12.4, potassium 4.5, creatinine 0.8. Troponin 0.92 and 0.91. BNP 1188. DIAGNOSES: 1. Pulmonary embolism. 2. Respiratory failure. 3. Suspected hypercoagulable state. 4. Bronchiectases. 5. Paroxysmal atrial fibrillation. 6. Moderate to severe mitral regurgitation. 7. Moderate tricuspid regurgitation. 8. Severe pulmonary hypertension. 9. Aortic stenosis, status post transcatheter aortic valve replacement. 11. Mild nonobstructive coronary artery disease. DISPOSITION: Ms. Renteria will be started on intravenous heparin for her pulmonary thromboembolism. She developed pulmonary embolism while on Coumadin. She will need to undergo evaluation for hypercoagulable state. She also has suspected pneumonia and will be started on antibiotics. She is undergoing pulmonary evaluation by Dr. Salmon. I will follow her for cardiology during her hospitalization. The plan was discussed with the patient and her family. MD ANDREE Flores/ , 05:37 PM , 06:06 PM STEVE
[2018-01-28] MEDS ORDERED: HEPARIN SODIUM - IV 10,000 UNITS/10 ML VIAL IV PUSH PRN ×2 (18:45)
[2018-01-28] MEDS: busPIRone HCL 10 MG TAB PO SCH (21:30)
[2018-01-28] MEDS: clonazePAM 1 MG TAB PO PRN (23:32)
[2018-01-28] MEDS: RESP: ALBUTEROL 2.5 MG/IPRATROPIUM 0.5 MG NEB (SCH) NEB (23:54)
[2018-01-29] VITALS (29 sets, daily range): BP systolic 108–137; BP diastolic 43–88; PULSE 59–88; RESP 18–20; TEMP 97.3–98; O2SAT 95–99
[2018-01-29 00:04] LABS: TROPONIN I 0.88 NG/ML (0.02-0.05)
[2018-01-29] MEDS: CEFEPIME INJ 2,000 MG in SODIUM CHLORIDE 0.9% INJ 100 ML IV SCH ×2 (04:14→16:28)
[2018-01-29] MEDS: LEVOTHYROXINE SODIUM 88 MCG TAB PO SCH (06:00)
[2018-01-29] MEDS: RESP: ALBUTEROL 2.5 MG/IPRATROPIUM 0.5 MG NEB (SCH) NEB ×3 (07:38→20:00)
[2018-01-29] MEDS: MULTIVITAMIN TAB PO SCH (08:37)
[2018-01-29] MEDS: LACTOBACILLUS ACIDOPHILUS TAB PO SCH (08:37)
[2018-01-29] MEDS: busPIRone HCL 10 MG TAB PO SCH ×2 (08:37→21:17)
[2018-01-29] MEDS: PANTOPRAZOLE SOD 40 MG DELAYED RELEASE TAB PO SCH (08:37)
[2018-01-29] MEDS: ASPIRIN 81 MG CHEW TAB CHEW SCH (08:37)
[2018-01-29] MEDS: clonazePAM 1 MG TAB PO PRN ×2 (08:37→17:14)
[2018-01-29] MEDS ORDERED: NON-FORMULARY DRUG (Saccharomyces Boulardii (Probiotic) 250 MG) PO SCH (09:00)
[2018-01-29] MEDS ORDERED: NON-FORMULARY DRUG (Lansoprazole 30 MG) PO SCH (09:00)
[2018-01-29] MEDS ORDERED: COLESTIPOL PO SCH ×2 (09:00)
[2018-01-29] MEDS ORDERED: NON-FORMULARY DRUG (Multiple Vitamin 1 TAB) PO SCH (09:00)
[2018-01-29] MEDS: POLYETHYLENE GLYCOL 17 GM PKG PO SCH (10:12)
[2018-01-29] MEDS: ACETAMINOPHEN 325 MG TAB PO PRN ×2 (10:13→16:50)
--- NOTE | 2018-01-29 10:59 | HHI.PR ---
Subjective Remarks The patient stated that her anxiety was improved with the IV Ativan. She says that she is very nervous and has been having a lot of leg cramps. She has been doing physical therapy as an outpatient. Discussed with family and nursing at the bedside. Objective Vitals Vital Signs Date Time Temp Pulse Resp B/P (MAP) Pulse Ox O2 Delivery O2 Flow Rate FiO2 01/29/18 08:39 97.4 86 18 128/80 (96) 97 01/29/18 06:00 68 01/29/18 05:00 62 01/29/18 04:00 80 01/29/18 03:45 97.6 69 18 113/71 (85) 95 01/29/18 03:00 59 01/29/18 02:00 65 01/29/18 01:00 72 01/29/18 00:00 71 01/28/18 23:44 97.8 65 18 125/79 (94) 96 01/28/18 23:00 72 01/28/18 22:00 68 01/28/18 21:00 70 01/28/18 20:22 98.3 62 16 114/73 (87) 96 01/28/18 20:00 76 01/28/18 19:00 79 01/28/18 18:00 68 01/28/18 17:00 78 01/28/18 17:00 98.1 70 19 125/78 (94) 98 01/28/18 16:07 01/28/18 13:50 88 24 164/88 (113) 96 Room Air I/O 01/28/18 01/28/18 01/28/18 01/29/18 01/29/18 01/29/18 07:00 15:00 23:00 07:00 15:00 23:00 Intake Total 580 ml Output Total 300 ml Balance 280 ml Intake Oral 480 ml IV Total 100 ml Output Urine Total 300 ml # Voids 2 Result Diagram: 01/28/18 1026 01/28/18 1026 Imaging Last Impressions Chest X-Ray 01/28/18 1009 Signed Impressions: CONCLUSION: Probable CHF. Postoperative changes as above. CT Angiography 01/28/18 1009 Signed Impressions: CONCLUSION: 1. Pulmonary emboli. 2. Patchy areas of density in the superior segments of the lower lobes bilater ally, in the lateral right upper lobe, right middle lobe, left lingula, and bas es. These can be followed. 3. Bilateral mild pleural effusions being worse on the left. Objective Remarks GENERAL: This is a well-nourished, well-developed patient, in no apparent distress. SKIN: No rashes, ecchymoses or lesions. Cool and dry. HEAD: Atraumatic. Normocephalic. No temporal or scalp tenderness. EYES: Pupils equal round and reactive. Extraocular motions intact. No scleral icterus. No injection or drainage. ENT: Nose without bleeding, purulent drainage or septal hematoma. Throat without erythema, tonsillar hypertrophy or exudate. Uvula midline. Airway patent. NECK: Trachea midline. No JVD or lymphadenopathy. Supple, nontender, no meningeal signs. CARDIOVASCULAR: Irregularly irregular, murmur present. RESPIRATORY: Bilateral crackles appreciated. GASTROINTESTINAL: Abdomen soft, non-tender, nondistended. No hepato-splenomegaly , or palpable masses. No guarding. MUSCULOSKELETAL: Extremities without clubbing, cyanosis, or edema. No joint tenderness, effusion, or edema noted. NEUROLOGICAL: Awake and alert. Cranial nerves II through XII intact. Motor and sensory grossly within normal limits. Five out of 5 muscle strength in all muscle groups. Normal speech. PSYCH: Anxious. A/P Assessment and Plan Acute on chronic respiratory failure/ PE/ Bronchiectasis The patient presents with worsening shortness of breath. CT showed: Pulmonary emboli; Patchy areas of density in the superior segments of the lower lobes bilaterally, in the lateral right upper lobe, right middle lobe, left lingula, and bases; Bilateral mild pleural effusions being worse on the left. Pulmonology consult appreciated. - continue standing and as needed nebs. - oxygen as needed. - sputum culture. - incentive spirometry. - IV cefepime. - Coumadin switched to heparin gtt. - hematology consulted for hypercoagulable workup. Elevated troponin/ Elevated BNP/ A fib Troponin was 0.92 on admission. Likely s/t PE. No chest pain. Cardiology consult appreciated. - monitor on telemetry. - heparin gtt. - continue ASA. Hypothyroidism On levothyroxine. TSH noted. - continue levothyroxine. Anxiety Acute on chronic. - continue Klonopin as needed. - IV Ativan for severe anxiety. Leg cramps May be s/t electrolyte disturbances. ? DVT. Already anticoagulated. - check mag and phos levels. - continue heparin gtt. - pain control as needed. - follow-up with hematology. PPx: Heparin gtt Luis Lainez DO Jan 29, 2018 10:59
[2018-01-29 14:36] LABS: PHOSPHORUS 3.9 MG/DL (2.5-4.9)
[2018-01-29] MEDS: LORazepam 2 MG/ML VIAL IV PUSH PRN ×2 (14:41→21:17)
--- NOTE | 2018-01-29 16:02 | PD.CARD.PN ---
Subjective Subjective Remarks No CP, SOB improving, walked in the halls with less SOB Objective Medications Current Medications Medications (Trade) Dose Ordered Sig/Claribel Route Start Time Stop Time Status Last Admin (NS Flush) 2 ml UNSCH PRN IVF 01/28/18 10:15 (Heparin Inj) 5,000 units UNSCH PRN IV PUSH 01/28/18 18:45 (Heparin Inj) 2,500 units UNSCH PRN IV PUSH 01/28/18 18:45 01/29/18 10:49 Heparin Sodium/ Dextrose 250 ml @ 6 mls/hr TITRATE PRN IV 01/28/18 12:45 01/28/18 13:49 (Aspirin Chew) 81 mg DAILY CHEW 01/29/18 09:00 01/29/18 08:37 (Buspar) 10 mg BID PO 01/28/18 21:00 01/29/18 08:37 (Synthroid) 88 mcg DAILY@0600 PO 01/29/18 06:00 01/29/18 06:00 (KlonoPIN) 1 mg Q8HR PRN PO 01/28/18 22:30 01/29/18 08:37 Cefepime HCl 2000 mg/Sodium Chloride 100 ml @ 200 mls/hr Q12H IV 01/28/18 16:00 01/29/18 04:14 (Duoneb Neb) 1 ampule Q2HR NEB PRN NEB 01/28/18 15:00 (Duoneb Neb) 1 ampule Q6HR WHILE AWAKE NEB NEB 01/28/18 20:00 01/29/18 14:36 (Protonix) 40 mg DAILY PO 01/29/18 09:00 01/29/18 08:37 (Theragran) 1 tab DAILY PO 01/29/18 09:00 01/29/18 08:37 Patient Own Medication PT OWN MED: COLE[facility]I... DAILY PO 01/29/18 09:00 Future Hold (Lactinex) 1 tab DAILY PO 01/29/18 09:00 01/29/18 08:37 (Sodium Chloride 0.9% Neb) 1 ml BID NEB PRN NEB 01/28/18 15:45 (Miralax) 17 gm DAILY PO 01/29/18 09:30 01/29/18 10:12 (Tylenol) 650 mg Q4H PRN PO 01/29/18 09:30 01/29/18 10:13 (Ativan Inj) 0.5 mg BID PRN IV PUSH 01/29/18 10:45 01/29/18 14:41 Vital Signs / I&O Vital Signs Date Time Temp Pulse Resp B/P (MAP) Pulse Ox O2 Delivery O2 Flow Rate FiO2 01/29/18 12:45 97.3 71 18 108/71 (83) 98 01/29/18 11:15 20 01/29/18 08:39 97.4 86 18 128/80 (96) 97 01/29/18 06:00 68 01/29/18 05:00 62 01/29/18 04:00 80 01/29/18 03:45 97.6 69 18 113/71 (85) 95 01/29/18 03:00 59 01/29/18 02:00 65 01/29/18 01:00 72 01/29/18 00:00 71 01/28/18 23:44 97.8 65 18 125/79 (94) 96 01/28/18 23:00 72 01/28/18 22:00 68 01/28/18 21:00 70 01/28/18 20:22 98.3 62 16 114/73 (87) 96 01/28/18 20:00 76 01/28/18 19:00 79 01/28/18 18:00 68 01/28/18 17:00 78 01/28/18 17:00 98.1 70 19 125/78 (94) 98 01/28/18 16:07 I/O 01/28/18 01/28/18 01/28/18 01/29/18 01/29/18 01/29/18 07:00 15:00 23:00 07:00 15:00 23:00 Intake Total 580 ml Output Total 300 ml Balance 280 ml Intake Oral 480 ml IV Total 100 ml Output Urine Total 300 ml # Voids 2 Physical Exam GENERAL: In NAD. SKIN: Warm and dry. HEAD: Normocephalic. EYES: No scleral icterus. No injection or drainage. NECK: Supple, trachea midline. No JVD or lymphadenopathy. CARDIOVASCULAR: Regular rate and rhythm without murmurs, gallops, or rubs. RESPIRATORY: Breath sounds equal bilaterally. No accessory muscle use. GASTROINTESTINAL: Abdomen soft, non-tender, nondistended. MUSCULOSKELETAL: No cyanosis, or edema. Laboratory Laboratory Tests Test 01/28/18 16:00 01/28/18 20:00 01/28/18 23:12 01/29/18 04:52 Troponin I 0.91 NG/ML 0.88 NG/ML Activated Partial Thromboplast Time 59.4 SEC 96.8 SEC Phosphorus Level 3.9 MG/DL Magnesium Level 2.0 MG/DL Thyroid Stimulating Hormone 3rd Gen 7.940 uIU/ML Test 01/29/18 09:50 01/29/18 15:45 Activated Partial Thromboplast Time 39.9 SEC Assessment and Plan Problem List: (1) Pulmonary embolism ICD Codes: I26.99 - Other pulmonary embolism without acute cor pulmonale (2) Respiratory failure ICD Codes: J96.90 - Respiratory failure, unspecified, unspecified whether with hypoxia or hypercapnia (3) S/P TAVR (transcatheter aortic valve replacement) ICD Codes: Z95.2 - Presence of prosthetic heart valve (4) Paroxysmal atrial fibrillation ICD Codes: I48.0 - Paroxysmal atrial fibrillation (5) CAD (coronary artery disease) ICD Codes: I25.10 - Atherosclerotic heart disease of [place] coronary artery without angina pectoris (6) Tricuspid regurgitation ICD Codes: I07.1 - Rheumatic tricuspid insufficiency (7) Mitral regurgitation ICD Codes: I34.0 - Nonrheumatic mitral (valve) insufficiency Assessment and Plan Pt suffered PE while therapeutic on warfarin. She needs hypercoagulable workup. Continue heparin. Recommend to switch to Eliquis 10 mg BID for 7 days, then 5 mg BID. Pulmonary evaluation in progress. Increase activity, PT. Memo Iqbal MD Jan 29, 2018 16:02
--- NOTE | 2018-01-29 16:45 | HHI.PR ---
Subjective Remarks ALERT AMBULATING NO DISTRESS Objective Vital Signs Date Time Temp Pulse Resp B/P (MAP) Pulse Ox O2 Delivery O2 Flow Rate FiO2 01/29/18 12:45 97.3 71 18 108/71 (83) 98 01/29/18 11:15 20 01/29/18 08:39 97.4 86 18 128/80 (96) 97 01/29/18 06:00 68 01/29/18 05:00 62 01/29/18 04:00 80 01/29/18 03:45 97.6 69 18 113/71 (85) 95 01/29/18 03:00 59 01/29/18 02:00 65 01/29/18 01:00 72 01/29/18 00:00 71 01/28/18 23:44 97.8 65 18 125/79 (94) 96 01/28/18 23:00 72 01/28/18 22:00 68 01/28/18 21:00 70 01/28/18 20:22 98.3 62 16 114/73 (87) 96 01/28/18 20:00 76 01/28/18 19:00 79 01/28/18 18:00 68 01/28/18 17:00 78 01/28/18 17:00 98.1 70 19 125/78 (94) 98 I/O 01/28/18 01/28/18 01/28/18 01/29/18 01/29/18 01/29/18 07:00 15:00 23:00 07:00 15:00 23:00 Intake Total 580 ml Output Total 300 ml Balance 280 ml Intake Oral 480 ml IV Total 100 ml Output Urine Total 300 ml # Voids 2 Result Diagram: 01/28/18 1026 01/28/18 1026 Objective Remarks GENERAL: SKIN: Warm and dry. HEAD: Atraumatic. Normocephalic. EYES: Pupils equal and round. No scleral icterus. No injection or drainage. ENT: No nasal bleeding or discharge. Mucous membranes pink and moist. NECK: Trachea midline. No JVD. CARDIOVASCULAR: Regular rate and rhythm. RESPIRATORY: No accessory muscle use. Clear to auscultation. Breath sounds equal bilaterally. GASTROINTESTINAL: Abdomen soft, non-tender, nondistended. Hepatic and splenic margins not palpable. MUSCULOSKELETAL: Extremities without clubbing, cyanosis, or edema. No obvious deformities. NEUROLOGICAL: Awake and alert. No obvious cranial nerve deficits. Motor grossly within normal limits. Five out of 5 muscle strength in the arms and legs. Normal speech. PSYCHIATRIC: Appropriate mood and affect; insight and judgment normal. Assessment and Plan Assessment and Plan IMPRESSION PE BRONCHIECTASIS AFIB S/P TAVR PLAN ANTICOAGULATION HEMATOLOGY TO SEE TODAY WILL FOLLOW Luis Antonio Salmon MD Jan 29, 2018 16:45
[2018-01-29 17:57] LABS: INTERNATIONAL NORMALIZED RATIO 1.9 RATIO; PROTHROMBIN TIME - PATIENT 19.4 SEC (9.8-11.6)
[2018-01-29] MEDS ORDERED: DIATRIZOATE MEGLUM/DIATRIZOATE SOD 9 ML CUP PO ONE (18:00)
--- NOTE | 2018-01-29 18:04 | MB ---
cc: Marivel Goldsmith MD DATE: 01/29/2018 REASON FOR CONSULTATION: Consult requested by hospitalist for evaluation of hypercoagulable state. The patient was admitted with pulmonary embolism and therapeutic INR, on Coumadin. HISTORY OF PRESENT ILLNESS: Ai is an 82-year-old female. She recently moved to this area from [place]. She has extensive cardiac history, and she is under the care of a local spice fumigator, Dr. Iqbal. The patient has had a bioprosthetic transcatheter aortic valve replacement about a year ago in [place]. She also has a permanent pacemaker, cardiac ablation for atrial fibrillation and cardiac catheterization for coronary artery disease. She also has a history of COPD, hypothyroidism, sick sinus syndrome, anxiety, bronchiectasis, gastroesophageal reflux disease. She is under the care of her local president + publisher, Dr. Salmon, for bronchiectasis and COPD. The patient has been maintained on Coumadin for the atrial fibrillation and the TAVR. The patient had developed possible pneumonia or bronchitis recently, and she was given Cipro. There is a drug interaction between Cipro and Coumadin. Her INR went up. The dose of the Coumadin was adjusted. According to the patient, she was advised not to take the Coumadin for 1 day and then the dose was reduced for the next 2 days until the INR came down to the therapeutic level and she resumed the Coumadin. The patient noticed that she has severe shortness of breath. She could hardly walk. These were new findings. She came into the emergency room. She had a CT angiogram, which showed pulmonary emboli and patchy density in the lower lobes on both sides. She also has mild bilateral pleural effusion, worse on the left. The patient's INR was therapeutic at 2.6 when she came in. She is now on heparin. I have been asked to see the patient for hypercoagulable workup. The patient denies any previous history of DVT or pulmonary embolism. She has been complaining of pain in the left lower leg for the last 2-3 weeks. She stated that her breathing has improved since she has been on heparin. Today, she walked in the hallway and her symptoms have improved. She is not that short of breath or gasping for air. Dr. Iqbal and Dr. Salmon have been consulted and they saw the patient. The rest of the review of systems is negative. PAST MEDICAL HISTORY: Atrial fibrillation, bronchiectasis, mitral regurgitation, tricuspid regurgitation, hypothyroidism, COPD. PAST SURGICAL HISTORY: TAVR, permanent pacemaker, cardiac catheterization, hernia repair, tonsillectomy. ALLERGIES: PENICILLIN, SULFA, AZITHROMYCIN AND LEVAQUIN. FAMILY HISTORY: Significant for lung cancer. SOCIAL HISTORY: The patient does not smoke cigarettes or drink alcohol. PHYSICAL EXAMINATION: GENERAL: A well-developed, well-nourished white female, in no apparent distress. VITAL SIGNS: Temperature 98, heart rate is 85, blood pressure 125/77, O2 saturation 98%. HEENT: PERRLA. EOMI, anicteric. No oral lesions noted. NECK: No lymphadenopathy noted. LUNGS: Decreased breath sounds on both sides. HEART: Irregularly irregular. ABDOMEN: Soft, nontender. No hepatosplenomegaly. EXTREMITIES: No pedal edema. NEUROLOGIC: Awake, alert, oriented x3. SKIN: No significant lesions are noted. ASSESSMENT 1. Pulmonary embolism with a therapeutic INR, on Coumadin. 2. Bioprosthetic transcatheter aortic valve replacement a year ago. 3. Atrial fibrillation. PLAN: I have reviewed her available records, and I have discussed with the patient and the family member regarding the first episode of unprovoked pulmonary embolism. She does not have any swelling of both lower legs, but she is complaining of pain and discomfort in the left lower extremity for the last 2-3 weeks. Therefore, I will get the Doppler venous ultrasound for evaluation of any DVT. I have been asked to comment on the hypercoagulable state. I do not recommend any hypercoagulable blood tests at this time as these will not be reliable as she was just on Coumadin, plus in the acute event, these test are not reliable. Moreover, the management of the pulmonary embolism is not going to be changed regardless what we get the results of the hypercoagulable panel during this admission. Therefore, my recommendation is to order the hypercoagulable panel in a nonacute setting in 4-6 weeks as an outpatient. However, malignancy certainly could be a possibility for the hypercoagulable state. Therefore, I will get the CAT scan of the abdomen and pelvis to evaluate for any malignancy. The CT angiogram of the chest did not show any lung masses or malignancy. The patient had failed Coumadin. My recommendation is for transition from heparin to Eliquis 10 mg twice a day for 7 days, followed by 5 mg twice a day. The patient is concerned with the bioprosthetic heart valve whether Eliquis would be safe. I reviewed her spice fumigator's note from today. Dr. Iqbal mentioned that she should be transitioned into Eliquis. The DOAC should not be used in mechanical heart valve. However, these are considered to be safe to use in bioprosthetic valve, especially that the valve was placed a year ago. Since this was not a surgical valve replacement, in fact, it was transcatheter aortic valve replacement, the general recommendation is for antiplatelet agents in the first 3-6 months of the surgery, but she would need anticoagulation for atrial fibrillation. The patient was reassured that I agree with her spice fumigator, Dr. Iqbal, to use Eliquis. Further recommendations based on her hospital stay. Thank you for asking my opinion. MD YEISON Mckeon/YOLANDA , 05:13 PM , 06:03 PM
[2018-01-29] MEDS ORDERED: IOHEXOL 350 MG/ML 10 ML VIAL (for RAD DIAG) IVCONTRAST ONE (21:07)
[2018-01-29] MEDS ORDERED: LEVALBUTEROL 0.63 MG/3 ML NEB PRN (22:00)
--- NOTE | 2018-01-29 22:15 | RADRPT ---
EXAM DATE: 01/29/2018 9:07 PM EDT AGE/SEX: 82 years / Female INDICATIONS: Abdomen pain. CLINICAL DATA: This is the patient's initial encounter. Patient reports that signs and symptoms have been present for 1 day and indicates a pain score of 3/10. MEDICAL/SURGICAL HISTORY: Cardiovascular disease. Hypertension. carcinoma. Cholecystectomy. ORAL CONTRAST: Prescribed oral contrast ingested. RADIATION DOSE: 5.41 CTDI (mGy) COMPARISON: [facility], CT ABDOMEN AND PELVIS W/ CONTRAST, 10/02/2017. . TECHNIQUE: Multiple contiguous axial images were obtained through the abdomen and pelvis following b olus infusion of 100 ml Omnipaque 350 (iohexol) nonionic water-soluble contrast as a single exam do se. Prescribed oral contrast ingested. Using automated exposure control and adjustment of the mA and /or kV according to patient size, radiation dose was kept as low as reasonably achievable to obtain o ptimal diagnostic quality images. DICOM format image data is available electronically for review and comparison. FINDINGS: Moderate bilateral effusions are present left greater than right. Bibasilar atelectasis is seen. Ther e are multiple hypodensities within the liver compatible with hepatic cysts the largest measuring 5.6 cm in segment 8 The spleen is normal in size and free of focal defects. The gallbladder is absent. T he pancreas demonstrates normal contour without evidence of mass or ductal dilatation. The adrenal gl ands are unremarkable. There are simple cysts on the right the largest measuring 3 cm. The left kidn ey is unremarkable. There is diffuse distention of the colon most probably the transverse which may r eflect colonic ileus. There is no evidence of abscess. Examination of the pelvis demonstrates no evidence of free fluid or pelvic mass. No abnormally enlarg ed inguinal or retroperitoneal lymph nodes are present. The bladder is unremarkable. The uterus is en larged with fibroids present. CONCLUSION: Findings of colonic ileus without abscess Uterine fibroids Bilateral effusions left greater than right Electronically signed by: Bean Crowder MD 01/29/2018 10:13 PM EDT
--- NOTE | 2018-01-29 23:14 | RADRPT ---
EXAM DATE: 01/29/2018 10:55 PM EDT AGE/SEX: 82 years / Female INDICATIONS: Pulmonary embolism with leg pain. CLINICAL DATA: This is the patient's initial encounter. Patient reports that signs and symptoms have been present for 1 day and indicates a pain score of 8/10. MEDICAL/SURGICAL HISTORY: Chronic obstructive pulmonary disease. Hypothyroidism. Right lung co llapse. A-fib. Pacemaker. Bilateral hernia repair. COMPARISON: No prior exams available for comparison. TECHNIQUE: Venous ultrasound of both lower extremities was performed from the inguinal ligament to t he proximal calf. Real-time, color Doppler and spectral tracing, compression and augmentation techni ques were used. FINDINGS: Right Leg: Normal compression of the deep venous system from the inguinal region to the proximal cris f. No echogenic clot is seen. Normal response of the venous system to augmentation and respiration. Left Leg: Normal compression of the deep venous system from the inguinal region to the proximal calf . No echogenic clot is seen. Normal response of the venous system to augmentation and respiration. Other: None. CONCLUSION: 1. Negative exam with no evidence of deep venous thrombosis. Electronically signed by: Luis Roberto MD 01/29/2018 11:13 PM EDT
[2018-01-30] VITALS (15 sets, daily range): BP systolic 105–125; BP diastolic 60–75; PULSE 57–91; RESP 18–20; TEMP 97.4–97.7; O2SAT 98–100
[2018-01-30] MEDS ORDERED: ONDANSETRON ODT 4 MG TAB SL PRN (00:15)
[2018-01-30] MEDS: clonazePAM 1 MG TAB PO PRN ×2 (01:14→09:13)
[2018-01-30] MEDS: CEFEPIME INJ 2,000 MG in SODIUM CHLORIDE 0.9% INJ 100 ML IV SCH (04:20)
[2018-01-30] MEDS: LEVOTHYROXINE SODIUM 88 MCG TAB PO SCH (06:39)
[2018-01-30] MEDS: RESP: ALBUTEROL 2.5 MG/IPRATROPIUM 0.5 MG NEB (SCH) NEB (08:00)
[2018-01-30] MEDS: MULTIVITAMIN TAB PO SCH (08:38)
[2018-01-30] MEDS: POLYETHYLENE GLYCOL 17 GM PKG PO SCH (08:39)
[2018-01-30] MEDS: PANTOPRAZOLE SOD 40 MG DELAYED RELEASE TAB PO SCH (08:39)
[2018-01-30] MEDS: busPIRone HCL 10 MG TAB PO SCH (08:39)
[2018-01-30] MEDS: ASPIRIN 81 MG CHEW TAB CHEW SCH (08:39)
[2018-01-30] MEDS: LACTOBACILLUS ACIDOPHILUS TAB PO SCH (08:39)
[2018-01-30] MEDS ORDERED: APIXABAN 5 MG TABLET PO SCH (10:30)
[2018-01-30] MEDS ORDERED: CIPROFLOXACIN 750 MG TAB PO SCH (10:45)
[2018-01-30] MEDS ORDERED: APIX5TAB PO ×2 (10:53)
[2018-01-30] MEDS ORDERED: CEFU1TAB20 PO (10:53)
--- NOTE | 2018-01-30 10:55 | HHI.DCPOC ---
Discharge Care Plan Diagnosis: (1) Pulmonary embolism (2) Paroxysmal atrial fibrillation (3) Tricuspid regurgitation (4) Respiratory failure (5) NSTEMI (non-ST elevated myocardial infarction) (6) S/P TAVR (transcatheter aortic valve replacement) Goals to Promote Your Health * To prevent worsening of your condition and complications * To maintain your health at the optimal level Directions to Meet Your Goals Take your medications as prescribed Follow your dietary instruction Follow activity as directed Keep your appointments as scheduled Take your immunizations and boosters as scheduled If your symptoms worsen call your PCP, if no PCP go to Urgent Care Center or Emergency Room Smoking is Dangerous to Your Health. Avoid second hand smoke Call the 24-hour hour crisis hotline for domestic abuse at Luis Lainez DO Jan 30, 2018 10:55
[2018-01-30] MEDS ORDERED: ALUMINUM/MAGNESIUM/SIMETH 30 ML CUP PO ONE (11:00)
[2018-01-30] MEDS ORDERED: CEFUROXIME AXETIL 500 MG TAB PO SCH (11:00)
--- NOTE | 2018-01-30 11:01 | HHI.DS ---
Discharge Summary Admission Date Jan 28, 2018 at 13:46 Discharge Date: Jan 30, 2018 Admitting Diagnosis PE, pulmomary edema (1) S/P TAVR (transcatheter aortic valve replacement) ICD Code: Z95.2 - Presence of prosthetic heart valve (2) Pulmonary embolism ICD Code: I26.99 - Other pulmonary embolism without acute cor pulmonale Diagnosis: Principal (3) Paroxysmal atrial fibrillation ICD Code: I48.0 - Paroxysmal atrial fibrillation (4) Respiratory failure ICD Code: J96.90 - Respiratory failure, unspecified, unspecified whether with hypoxia or hypercapnia Procedures None Brief History - From Admission The patient is an 82-year-old female with a past medical history significant for bronchiectasis who is presenting to the hospital with worsening of her shortness of breath. The patient says that she has been treated for bronchiectasis for the past 17 years. 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 She says normally when she gets shortness of breath she will get nebulizer treatments and IV cefepime from the infectious disease doctor. She says she usually gets a CAT scan once a year for monitoring purposes. She says the last time she got antibiotics through the IV was Thanksgiving time. Approximately 3 weeks ago she completed a course of Cipro for 10 days. The patient says as of last week she could not ambulate to the mailbox without getting short of breath. She denies any lower extremity swelling. She says she can lie flat on her back without shortness of breath. She says as long as she stays still or sits down she does not have shortness of breath. She denies any associated chest pain. She has been endorsing some leg cramps in the middle of the night. CBC/BMP: 01/28/18 1026 01/28/18 1026 Significant Findings Laboratory Tests Test 01/28/18 10:26 01/28/18 16:00 01/28/18 20:00 01/28/18 23:12 Red Blood Count 3.98 MIL/MM3 (4.00-5.30) Monocytes (%) (Auto) 11.5 % (0.0-8.0) Lymphocytes # (Auto) 0.9 TH/MM3 (1.0-4.8) Prothrombin Time 26.1 SEC (9.8-11.6) Activated Partial Thromboplast Time 40.1 SEC (24.3-30.1) 59.4 SEC (24.3-30.1) Chloride Level 110 MEQ/L (98-107) Estimat Glomerular Filtration Rate 68 ML/MIN (>89) Creatine Kinase MB 8.4 NG/ML (0.5-3.6) Troponin I 0.92 NG/ML (0.02-0.05) 0.91 NG/ML (0.02-0.05) 0.88 NG/ML (0.02-0.05) B-Type Natriuretic Peptide 1188 PG/ML (0-100) Thyroid Stimulating Hormone 3rd Gen 7.940 uIU/ML (0.358-3.740) Test 01/29/18 04:52 01/29/18 09:50 01/29/18 15:45 01/29/18 22:46 Activated Partial Thromboplast Time 96.8 SEC (24.3-30.1) 39.9 SEC (24.3-30.1) 50.4 SEC (24.3-30.1) 48.1 SEC (24.3-30.1) Prothrombin Time 19.4 SEC (9.8-11.6) Test 01/30/18 04:45 Activated Partial Thromboplast Time 44.6 SEC (24.3-30.1) Imaging Last Impressions Lower Extremity Ultrasound 01/29/18 0000 Signed Impressions: CONCLUSION: 1. Negative exam with no evidence of deep venous thrombosis. Abdomen/Pelvis CT 01/29/18 0000 Signed Impressions: Examination of the pelvis demonstrates no evidence of free fluid or pelvic mass . No abnormally enlarged inguinal or retroperitoneal lymph nodes are present. T he bladder is unremarkable. The uterus is enlarged with fibroids present. CONCL USION: Findings of colonic ileus without abscess Uterine fibroids Bilateral effusions left greater than right Chest X-Ray 01/28/18 1009 Signed Impressions: CONCLUSION: Probable CHF. Postoperative changes as above. CT Angiography 01/28/18 1009 Signed Impressions: CONCLUSION: 1. Pulmonary emboli. 2. Patchy areas of density in the superior segments of the lower lobes bilater ally, in the lateral right upper lobe, right middle lobe, left lingula, and bas es. These can be followed. 3. Bilateral mild pleural effusions being worse on the left. PE at Discharge GENERAL: This is a well-nourished, well-developed patient, in no apparent distress. SKIN: No rashes, ecchymoses or lesions. Cool and dry. HEAD: Atraumatic. Normocephalic. No temporal or scalp tenderness. EYES: Pupils equal round and reactive. Extraocular motions intact. No scleral icterus. No injection or drainage. ENT: Nose without bleeding, purulent drainage or septal hematoma. Throat without erythema, tonsillar hypertrophy or exudate. Uvula midline. Airway patent. NECK: Trachea midline. No JVD or lymphadenopathy. Supple, nontender, no meningeal signs. CARDIOVASCULAR: Irregularly irregular, murmur present. RESPIRATORY: Bilateral crackles appreciated. GASTROINTESTINAL: Abdomen soft, non-tender, nondistended. No hepato-splenomegaly , or palpable masses. No guarding. MUSCULOSKELETAL: Extremities without clubbing, cyanosis, or edema. No joint tenderness, effusion, or edema noted. NEUROLOGICAL: Awake and alert. Cranial nerves II through XII intact. Motor and sensory grossly within normal limits. Five out of 5 muscle strength in all muscle groups. Normal speech. PSYCH: Anxious. Pt update on day of discharge The patient was seen alongside hematology. The patient was feeling well. She said she had diarrhea because she took quite a bowel regimen. She wanted to go home. She denied any symptoms. She had questions about her anticoagulation. Discussed with her family and nursing at the bedside. Hospital Course Acute on chronic respiratory failure/ PE/ Bronchiectasis The patient presented with worsening shortness of breath. CT showed: Pulmonary emboli; Patchy areas of density in the superior segments of the lower lobes bilaterally, in the lateral right upper lobe, right middle lobe, left lingula, and bases; Bilateral mild pleural effusions being worse on the left. Pulmonology was consulted. We started standing and as needed nebs. She received oxygen as needed. A sputum culture was obtained and the results are currently pending. She received incentive spirometry. She was started on IV cefepime. Coumadin was switched to a heparin gtt. Hematology was consulted. Hematology recommended switching Coumadin to Eliquis. The pt will complete a course of Ceftin. She will follow up with pulmonology and hematology as an outpt. It was recommended to d/c her hormonal treatments and to update her OBGYN on Thursday. Elevated troponin/ Elevated BNP/ A fib Troponin was 0.92 on admission. She denied chest pain. Cardiology was consulted. We monitored her on telemetry. She was on a heparin gtt. We continued ASA. Cardiology recommended switching her anticoagulation to Eliquis. She will follow up with cardiology as an outpt. Anxiety Acute on chronic. We continued her home Klonopin dosing and added IV Ativan for severe anxiety. Leg cramps LE US negative for DVT. Electrolytes were normal. She received pain control as needed. Pt Condition on Discharge: Stable Discharge Disposition: Discharge Home Discharge Time: > 30 minutes Discharge Instructions DIET: Follow Instructions for: Heart Healthy Diet Activities you can perform: Weight Bearing as Kierra Follow up Referrals: Cardiology - 2 Weeks with Memo Iqbal MD Oncology/Hematology - 4 Weeks with Indu Goldsmith MD PCP Follow-up - 1 Week Pulmonology - 1 Week with Luis Antonio Salmon MD New Medications: Apixaban (Eliquis) 5 Mg Tab 5 MG PO BID for Blood Clot Prevention, #60 TAB 0 Refills Apixaban (Eliquis) 5 Mg Tab 10 MG PO BID for Blood clots for 7 Days, #28 TAB Cefuroxime (Cefuroxime) 500 Mg Tab 500 MG PO Q12HR for Infection, #10 TAB Continued Medications: Aspirin (Aspirin) 81 Mg Chew 81 MG CHEW DAILY, TAB 0 Refills Buspirone (Buspirone) 10 Mg Tab 10 MG PO BID for Anxiety, TAB 0 Refills Clonazepam (Clonazepam) 1 Mg Tab 1 MG PO TID, #90 TAB 0 Refills Colestipol (Colestipol) 1 Gram Tab 0.5 GM PO DAILY, #60 TAB 0 Refills Cyanocobalamin Inj (Cyanocobalamin Inj) 1,000 Mcg/Ml Inj 1000 MCG IM Q30D, #1 VIAL 0 Refills Dextromethorphan-Guaifenesin (Mucinex DM) 30-600 Mg Tab 1 TAB PO DAILY, TAB 0 Refills Lansoprazole (Lansoprazole) 30 Mg Capdr 30 MG PO DAILY, CAP 0 Refills Levalbuterol Neb (Levalbuterol Neb) 0.63 Mg/3 Ml Neb 0.63 MG INH Q8HR for Breathing Treatment, #120 NEBULE 0 Refills Levothyroxine (Levothyroxine) 88 Mcg Tab 88 MCG PO DAILY for Thyroid, #30 TAB 0 Refills Multiple Vitamin (Multiple Vitamin) 1 Tab 1 TAB PO DAILY for Nutritional Supplement, TAB 0 Refills Saccharomyces Boulardii (Probiotic) 250 Mg Cap 250 MG PO DAILY for Nutritional Supplement, CAP 0 Refills Sodium Chloride Neb (Sodium Chloride Neb) 7 % Neb 1 ML NEB BID PRN for BRONCOSPASM, NEBULE 0 Refills Dilute in bronchodilator solution in nebulizer before administration. Tramadol (Tramadol) 50 Mg Tab 50 MG PO DAILY PRN for PAIN, TAB 0 Refills Discontinued Medications: Estradiol Patch 168 HR (Estradiol Patch 168 HR) 0.06 Mg/24 Hr Patch 1 PATCH T-DERMAL 2XWEEK for Estrogen Supplements, #4 PATCH 0 Refills Remove old patch and discard when new patch being placed. Progesterone Micronized (Progesterone Micronized) 200 Mg Cap 200 MG PO HS for Endometrial hyperplasia, #12 CAP 0 Refills Warfarin (Warfarin) 2 Mg Tab 4 MG PO DAILY for Blood Clot Prevention, #30 TAB 0 Refills Luis Lainez DO Jan 30, 2018 11:01
--- NOTE | 2018-01-30 11:11 | PD.ONC.PN ---
Subjective Subjective Remarks Afebrile overnight. patient resting in bed in nad. No complaints. at bedside. denies bleeding. states breathing is much better than when she initially was admitted to hospital. Objective Data Date Time Temp Pulse Resp B/P (MAP) Pulse Ox O2 Delivery O2 Flow Rate FiO2 01/30/18 08:33 97.4 63 18 125/75 (92) 100 01/30/18 06:00 62 01/30/18 05:00 70 01/30/18 04:30 97.5 57 20 119/72 (88) 98 01/30/18 04:00 70 01/30/18 03:00 66 01/30/18 02:00 85 01/30/18 01:00 91 01/30/18 00:00 70 01/29/18 23:00 73 01/29/18 22:58 97.4 59 18 109/43 (65) 98 01/29/18 22:00 84 01/29/18 20:00 88 01/29/18 19:19 97.5 84 20 137/88 (104) 99 01/29/18 19:00 81 01/29/18 18:06 18 01/29/18 18:00 82 01/29/18 17:00 76 01/29/18 16:39 98.0 85 20 125/77 (93) 98 01/29/18 16:00 78 01/29/18 15:00 86 01/29/18 14:00 80 01/29/18 13:00 80 01/29/18 12:45 97.3 71 18 108/71 (83) 98 01/29/18 12:00 88 01/30/18 01/30/18 01/30/18 06:59 14:59 22:59 Intake Total 1780 ml Output Total 200 ml Balance 1580 ml Result Diagram: 01/28/18 1026 01/28/18 1026 Laboratory Results Laboratory Tests Test 01/29/18 15:45 01/29/18 22:46 01/30/18 04:45 Prothrombin Time 19.4 SEC Prothromb Time International Ratio 1.9 RATIO Activated Partial Thromboplast Time 50.4 SEC 48.1 SEC 44.6 SEC Culture Results Microbiology Date/Time Source Procedure Growth Status 01/29/18 14:32 Stool Stool Stool Occult Blood (MILVIA) - Final HEMOCCULT NEGATIVE Complete 01/29/18 12:40 Sputum Expectorated Sputum Gram Stain - Final Resulted 01/29/18 12:40 Sputum Expectorated Sputum Sputum Culture Pending Resulted Administered Medications Medications (Trade) Dose Ordered Sig/Claribel Route PRN Reason Start Time Stop Time Status Last Admin Dose Admin Aspirin (Aspirin Chew) 81 mg DAILY CHEW 01/29/18 09:00 01/30/18 08:39 Buspirone HCl (Buspar) 10 mg BID PO 01/28/18 21:00 01/30/18 08:39 Levothyroxine Sodium (Synthroid) 88 mcg DAILY@0600 PO 01/29/18 06:00 01/30/18 06:39 Clonazepam (KlonoPIN) 1 mg Q8HR PRN PO anxiety 01/28/18 22:30 01/30/18 09:13 Albuterol/ Ipratropium (Duoneb Neb) 1 ampule Q6HR WHILE AWAKE NEB NEB 01/28/18 20:00 01/29/18 14:36 Pantoprazole Sodium (Protonix) 40 mg DAILY PO 01/29/18 09:00 01/30/18 08:39 Multivitamins (Theragran) 1 tab DAILY PO 01/29/18 09:00 01/30/18 08:38 Lactobacillus Acidophilus (Lactinex) 1 tab DAILY PO 01/29/18 09:00 01/30/18 08:39 Polyethylene Glycol (Miralax) 17 gm DAILY PO 01/29/18 09:30 01/29/18 10:12 Acetaminophen (Tylenol) 650 mg Q4H PRN PO pain/ fever 01/29/18 09:30 01/29/18 16:50 Lorazepam (Ativan Inj) 0.5 mg BID PRN IV PUSH severe anxiety 01/29/18 10:45 01/29/18 21:17 Patient Own Medication PT:LEVALBUTEROL 0.63/3 ML--1 AMP NEB ... QID PRN NEB SHORTNESS OF BREATH 01/29/18 22:00 01/30/18 08:16 Ondansetron HCl (Zofran Odt) 4 mg Q6H PRN SL nausea 01/30/18 00:15 01/30/18 00:29 Objective Remarks GENERAL: Elderly female, sitting up in bed in nad. SKIN: Warm and dry. HEAD: Normocephalic. EYES: no injection or drainage. NECK: Supple, trachea midline. CARDIOVASCULAR: IRR RESPIRATORY: Breath sounds equal bilaterally. No accessory muscle use. GASTROINTESTINAL: Abdomen soft, non-tender, nondistended. EXTREMITIES: No cyanosis NEUROLOGICAL: awake and alert. normal speech. moving extremities. Assessment/Plan Problem List: (1) Pulmonary embolism ICD Codes: I26.99 - Other pulmonary embolism without acute cor pulmonale Plan: 01/30: okay to start Eliquis. discussed following up at the clinic in 4-6 weeks post hospitalization for hypercoagulable workup. patient/ agreeable with plan. --failed coumadin therapy -- Bioprosthetic transcatheter aortic valve replacement a year ago. --no DVT --fs faxed to new patient referrals Assessment 82y/o female admitted with PE, hematology consulted for hypercoagulable workup. h/o Atrial fibrillation, bronchiectasis, mitral regurgitation, tricuspid regurgitation, hypothyroidism, COPD. h/o TAVR, permanent pacemaker, cardiac catheterization, hernia repair, tonsillectomy. Attending Statement The exam, history, and the medical decision-making described in the above note were completed with the assistance of the mid-level provider. I reviewed and agree with the findings presented. I attest that I had a [id number] encounter with the patient on the same day, and personally performed and documented my assessment and findings in the medical record. Patient is anxious to go home. Her difficulty breathing has improved. Patient can be discharged to home on Eliquis. I will see her in our office for hypercoagulable workup. CT of the abdomen and pelvis does not show any malignancy. Doppler ultrasound of both lower legs does not show any DVT. I have discussed with patient's attending. Okay to discharge. Nara Roa Jan 30, 2018 11:11 Indu Goldsmith MD Jan 30, 2018 21:30
== END 2018-01-30 13:10 | disposition home or self-care (01) | DRG 175 ==
LOC: NEPC 08:47 → NEDA 13:46 → HCIS 16:12
PROVIDERS: ADMIT Hospitalist; ATTEND Hospitalist
DX: I26.99 Other pulmonary embolism without acute cor pulmonale (principal); I21.4 Non-ST elevation (NSTEMI) myocardial infarction; J96.20 Acute and chronic respiratory failure, unspecified whether with hypoxia or hypercapnia; D68.59 Other primary thrombophilia; I50.9 Heart failure, unspecified; I27.20 Pulmonary hypertension, unspecified; I49.5 Sick sinus syndrome; J98.19 Other pulmonary collapse; I48.0 Paroxysmal atrial fibrillation; J84.10 Pulmonary fibrosis, unspecified; D64.9 Anemia, unspecified; F41.9 Anxiety disorder, unspecified; I25.10 Atherosclerotic heart disease of native coronary artery without angina pectoris; E07.9 Disorder of thyroid, unspecified; E03.9 Hypothyroidism, unspecified; J47.9 Bronchiectasis, uncomplicated; R25.2 Cramp and spasm; J44.9 Chronic obstructive pulmonary disease, unspecified; I08.1 Rheumatic disorders of both mitral and tricuspid valves; K21.9 Gastro-esophageal reflux disease without esophagitis; M79.662 Pain in left lower leg; Z79.01 Long term (current) use of anticoagulants; Z95.0 Presence of cardiac pacemaker; Z80.1 Family history of malignant neoplasm of trachea, bronchus and lung; Z95.2 Presence of prosthetic heart valve
CPT/HCPCS: 71045; 71275; 74177; 80053; 82272; 82550; 82552; 83735; 83880; 84100; 84443; 84484; 85025; 85610; 85730; 87070; 87205; 93005; 93970; 94150; 94640; 94664; 96374; J0692; J1644; J1940; J2060; Q9963; Q9967

== ENCOUNTER 2018-02-06 17:59 | Inpatient (IN) ==
[2018-02-07] MEDS ORDERED: Bisacodyl 10 MG Supp RECTAL PRN (00:08)
[2018-02-07] MEDS ORDERED: Naloxone Inj 0.4 MG/ML Vial IV.PUSH PRN (00:13)
[2018-02-07] MEDS ORDERED: Sod Chloride 0.9% Inj 1,000 ML IV.SIG SCH (00:15)
[2018-02-07] MEDS ORDERED: Acetaminophen 325 MG Tablet PO PRN (00:24)
[2018-02-07 03:43] LABS: Baso % (Auto) 1.1 % (0.0-2.0); Eos % (Auto) 0.7 % (0.0-4.0); Hematocrit 34.6 % (35.0-46.0); Hemoglobin 11.1 gm/dL (11.6-15.3); Lymph # (Auto) 0.9 th/mm3 (1.0-4.8); Mean Corpuscular HGB Conc 32.1 % (32.0-36.0); Mean Corpuscular Hemoglobin 31.1 pg (27.0-34.0); Mean Corpuscular Volume 96.8 fL (80.0-100.0); Mean Platelet Volume 8.5 fL (7.0-11.0); Mono # (Auto) 0.6 th/mm3 (0.0-0.9); Mono % (Auto) 13.3 % (0.0-8.0); Neut # (Auto) 2.9 th/mm3 (1.8-7.7); Neut % (Auto) 64.9 % (16.0-70.0); Platelet Count 192 th/mm3 (150-450); Red Blood Count 3.57 mil/mm3 (4.00-5.30); Red Cell Distribution Width 17.3 % (11.6-17.2); White Blood Count 4.5 th/mm3 (4.0-11.0)
[2018-02-07 04:00] LABS: Calcium 8.2 mg/dL (8.5-10.1); Carbon Dioxide 25.6 meq/L (21.0-32.0); Potassium 3.9 meq/L (3.5-5.1)
[2018-02-07 04:08] LABS: Troponin I 0.91 ng/mL (0.02-0.05)
[2018-02-07] MEDS ORDERED: Levothyroxine 88 MCG Tablet PO SCH (06:00)
[2018-02-07 08:17] LABS: Baso % (Auto) 1.1 % (0.0-2.0); Eos % (Auto) 0.7 % (0.0-4.0); Hematocrit 34.5 % (35.0-46.0); Hemoglobin 11.4 gm/dL (11.6-15.3); Lymph # (Auto) 0.7 th/mm3 (1.0-4.8); Lymph % (Auto) 18.8 % (9.0-44.0); Mean Corpuscular HGB Conc 32.9 % (32.0-36.0); Mean Corpuscular Hemoglobin 31.3 pg (27.0-34.0); Mean Corpuscular Volume 95.2 fL (80.0-100.0); Mean Platelet Volume 8.6 fL (7.0-11.0); Mono # (Auto) 0.5 th/mm3 (0.0-0.9); Mono % (Auto) 12.6 % (0.0-8.0); Neut # (Auto) 2.7 th/mm3 (1.8-7.7); Neut % (Auto) 66.8 % (16.0-70.0); Platelet Count 181 th/mm3 (150-450); Red Blood Count 3.63 mil/mm3 (4.00-5.30); Red Cell Distribution Width 16.3 % (11.6-17.2)
[2018-02-07 08:48] LABS: Calcium 8.4 mg/dL (8.5-10.1); Carbon Dioxide 24.7 meq/L (21.0-32.0); Potassium 3.8 meq/L (3.5-5.1)
[2018-02-07] MEDS ORDERED: clonazePAM 1 MG Tablet PO SCH (09:00)
[2018-02-07] MEDS ORDERED: Senna/Docusate Sodium 8.6/50 MG Tablet PO SCH (09:00)
--- NOTE | 2018-02-08 00:07 | ECG ---
Date Performed: 02/07/2018 Time Performed: 08:56:13 PTAGE: 82 years EKG: ELECTRONIC ATRIAL PACEMAKER ELECTRONIC VENTRICULAR PACEMAKER ABNORMAL RHYTHM ECG PREVIOUS TRACING : 02/06/2018 20.24 Since the previous tracing, no significant change noted DOCTOR: Mario Castro Interpretating Date/Time 02/08/2018 00:04:57
[2018-02-08] MEDS ORDERED: clonazePAM 1 MG Tablet ONE (17:05)
== END 2018-02-07 01:16 | disposition home or self-care (01) ==
LOC: UNDODISIN → NEDA 21:39 → N06 22:44
PROVIDERS: ADMIT Family Medicine; ATTEND Family Medicine